=== PATIENT | female | born 1990 | race Caucasian/White ===

== ENCOUNTER 2016-05-20 11:53 | Emergency (ER) | payer BC, OTHER ==
[~2016-05-20] VITALS: Ht 154.9 cm; Wt 82.8 kg
[~2016-05-20 11:53] MED LIST: ACET-1256 PO; AMAN100T2 PO; ASPI-390 PO; BCPILLS PO; CHOL100010 PO; CLTP PO; CTP1CL PO; DESM0.1T8 PO; EFFSR150 PO; FLR1 PO; FRCT/ PO; GABA800T PO; MELA1TAB3 PO; METO-157 PO; MULT-506 PO; MXT150 PO; NEBI10TA2 PO; OXYC-643 PO; PROM25TA16 PO; RIBO100T9 PO; ULT/50 PO
[2016-05-20 11:55] VITALS: TEMP 36.9; Ht 154.9 cm; Wt 82.8 kg
[2016-05-20] MEDS ORDERED: ONDANSETRON INJ 2 MG/ML 2 ML VIAL IV STA (12:18)
[2016-05-20] MEDS ORDERED: MoRPHine SULFATE 10 MG/ML CARP/VIAL IV STA (12:18)
[2016-05-20] MEDS ORDERED: SODIUM CHLORIDE 0.9% 1000ML 1,000 ML IV STA (12:18)
[2016-05-20] MEDS ORDERED: OPTIRAY 320 IV PRN (12:30)
[2016-05-20 12:47] LABS: BASO % 0.1 %; BASO ABS # 0.02 K/uL (0-0.2); COMPLETE YES; EOS % 0.9 %; HEMATOCRIT 40.8 % (37-47); IG% 0.3 %; LYMPH % 23.4 %; LYMPH ABS # 3.16 K/uL (1.2-3.4); MEAN CELL VOLUME 86.6 fL (80-100); MEAN CORPUSCULAR HEMOGLOBIN 29.7 pg (25-34); MEAN CORPUSCULAR HGB CONC 34.3 g/dl (32-36); MEAN PLATELET VOLUME 10.1 fL (7.4-10.4); MONO % 4.2 %; NEUT % 71.1 %; PLATELET COUNT 315 K/uL (130-400); RED BLOOD COUNT 4.71 M/uL (4.2-5.4); WHITE BLOOD COUNT 13.49 K/uL (4.8-10.8)
[2016-05-20 13:16] LABS: BLOOD UREA NITROGEN 15 mg/dl (7-18); BUN/CREATININE RATIO 22.3 (10-20); CARBON DIOXIDE 19 mmol/L (21-32); CHLORIDE 107 mmol/L (98-107); CREATININE 0.65 mg/dl (0.60-1.20); GLUCOSE 120 mg/dl (70-99); SODIUM 137 mmol/L (136-145)
--- NOTE | 2016-05-20 13:45 | DIAGNOSTIC IMAGING REPORT ---
CHEST ONE VIEW PORTABLE CLINICAL HISTORY: Chest Pain COMPARISON STUDY: 10/08/2014 FINDINGS: The cardiac and mediastinal contours are normal. There is no evidence of focal pulmonary consolidation. There is no evidence of failure. No pleural effusions are visualized.[ IMPRESSION: No active disease in the chest. Electronically signed by: Venkatesh Godwin M.D. 05/20/2016 1:43 PM
[2016-05-20] MEDS ORDERED: KETOROLAC TROMETHAMINE 30 MG/ML VIAL IV STA (14:59)
--- NOTE | 2016-05-20 15:00 | DIAGNOSTIC IMAGING REPORT ---
CT ANGIOGRAPHY OF THE CHEST, ABDOMEN, AND PELVIS CLINICAL HISTORY: Chest pain. Left hip pain. COMPARISON STUDY: Right upper quadrant ultrasound March 05, 2009 TECHNIQUE: Before and following the IV administration of 93 mL of Optiray-320, helical axial images of the chest, abdomen and pelvis were obtained. Maximal intensity projections and sagittal and coronal reformats were viewed on an independent 3D workstation. IV contrast was administered without complication. CT DOSE: 1868.14 mGycm FINDINGS: The caliber of the thoracic aorta is normal. There is no evidence for intramural hematoma or dissection. The size of the heart is normal. There is no pericardial effusion. Opacification of the pulmonary arteries is suboptimal for evaluation for pulmonary emboli. There is no thoracic lymphadenopathy. There is no pneumomediastinum. No pneumothorax or pleural effusion is present. There is no consolidation. Note is made of a 7 mm perifissural nodule within the right middle lobe which is shown on image 144 of 646. There are few tiny subpleural nodules as well. The bony thorax is unremarkable. Arterial phase images of the liver, spleen, adrenal glands, kidneys and pancreas are normal. There is a 2 mm right renal calculus. No ureteral calculi are present and there is no hydronephrosis. The caliber and wall thickness of small and large bowel are normal. There is hyperdense material within the appendix which is otherwise normal. No free fluid is present. The ovaries are not significantly enlarged. Skeletal structures are unremarkable. No lymphadenopathy is present. There is no pneumatosis, free air or portal venous gas. The caliber of the abdominal aorta is normal. Major branch vessels are patent. IMPRESSION: 1. No aortic dissection. 2. 2 mm right renal calculus. No ureteral calculi or hydronephrosis. 3. Trace right pleural effusion. No consolidation. 4. 7 mm perifissural nodule within the right middle lobe. In addition, there are a few smaller subpleural nodule. These nodules are likely benign but a follow-up chest CT in 6 months to ensure stability is recommended. Electronically signed by: Mateusz Urbina M.D. 05/20/2016 2:58 PM
[2016-05-20] MEDS ORDERED: MoRPHine SULFATE 4 MG/ML 1 ML CARP\\VIAL IV STA (15:47)
--- NOTE | 2016-05-20 16:03 | DIAGNOSTIC IMAGING REPORT ---
LEFT HIP UNILATERAL 2 VIEWS CLINICAL HISTORY: Left hip pain. COMPARISON: MRI of the left hip November 29, 2013. FINDINGS: Alignment of left hip is anatomic. Joint space is preserved. There is no fracture. There is no evidence for avascular necrosis. There is contrast within the bladder from recent contrast-enhanced CT. IMPRESSION: Unremarkable left hip radiographs. Electronically signed by: Mateusz Urbina M.D. 05/20/2016 4:01 PM
[2016-05-20 16:32] VITALS: BP 135/83; PULSE 116
[2016-05-20 16:49] VITALS: O2SAT 99
--- NOTE | 2016-05-20 18:38 | EMERGENCY ROOM VISIT NOTE ---
History Report prepared by Venu: Suzy Whyte Under the Supervision of: Dr. Vladislav Guzman D.O. First contact with patient: 12:00 Chief Complaint: CHEST PAIN Stated Complaint: CHEST AND HIP PAIN, MIGRAINE Nursing Triage Summary: hx of P.O.T.S. having chest pains and sob for the past 4 days. went to pcp. "they had trouble reading the ekg" History of Present Illness The patient is a 25 year old female who presents to the Emergency Room with complaints of constant chest pain that started 4 days ago. The pain is worse with swallowing and moving around but nothing makes it better. She states that it feels like "when you swallow after taking too big of a bite." She is also experiencing shortness of breath but denies changes in vision, arm pain, and weakness or numbness of her arms or legs. The patient saw her PCP earlier today and they sent her into the ED for further evaluation of her chest pain. She has a history of P.O.T.S. and Jerome-Danlos syndrome, but denies any other heart problems. Additionally, she is experiencing a frontal migraine and left hip pain. The migraine started one week ago and hasn't gone away with medications. The migraine feels like her typical migraines that she has been experiencing for 7 years. The patient has received imaging of her head for the migraines. Headache came on gradually and has progressively worsened. The patient states that she has dislocated her left hip twice but it has been put back in. She has a history of a torn ligament in her hip but she does not follow with anyone for it. She denies any history of COPD. she denies any history of diabetes, hypertension, hyperlipidemia, CAD her previous heart attacks. Just denies any sudden within her family at a young age. Source of History: patient Onset: 4 days ago Position: chest Quality: other ("when you swallow after taking too big of a bite.") Timing: constant Modifying Factors (Worsening): movement, other (swallowing) Modifying Factors (Relieving): other (none) Associated Symptoms: + SOB, + headache (frontal), No numbness, No weakness Note: left hip pain, no changes in vision, no arm pain Review of Systems See HPI for pertinent positives & negatives. A total of 10 systems reviewed and were otherwise negative. Past Medical & Surgical Medical Problems: (1) ASTHMA, UNSPECIFIED (2) CARDIAC DYSRHYTHMIAS NEC (3) Dysautonomia (4) Jerome-Danlos syndrome (5) HEADACHE (6) Migraine (7) MIGRAINE UNSPECIFIED W/O INTRACT MGRN W/O STATUS MIGRAINOSUS (8) POTS (postural orthostatic tachycardia syndrome) Surgical Problems: (1) H/O wisdom tooth extraction (2) History of orthopedic surgery (3) Hx of cholecystectomy Family History FH: HTN (hypertension) FH: diabetes mellitus FH: heart disease Social History Smoking Status: Never Smoker Alcohol Use: none Drug Use: none Marital Status: single Housing Status: lives with roommate Occupation Status: [employer] student Current/Historical Medications Scheduled Acetamin/Butalbital/Caffeine (Fioricet), 1 TAB PO Q4HR PRN Amantadine Hcl (Symmetrel), 200 MG PO DAILY Control Pills ( Control Pills), 1 TAB PO DAILY Calcium/Vitamin D (Caltrate 600 Plus *), 1 TAB PO DAILY Cholecalciferol (Vitamin D), 2,000 INTER.UNIT PO DAILY Clonidine Hcl (Catapres), 0.2 MG PO QPM Desmopressin Acetate (Desmopressin Acetate), 0.1 MG PO DAILY Fludrocortisone Acetate (Florinef *), 0.2 MG PO QAM Gabapentin (Neurontin), 800 MG PO TID Melatonin-Pyridoxine (Melatonin), 3 MG PO QPM Mexiletine Hcl (Mexiletine Hcl), 150 MG PO TID Multivitamin (Multivitamin), 1 TAB PO DAILY Nebivolol Hcl (Bystolic), 10 MG PO DAILY Riboflavin (Vitamin B-2), 200 MG PO BID Venlafaxine Hcl (Effexor Extended Rel), 150 MG PO DAILY Scheduled PRN Acetaminophen (Tylenol), 1,000 MG PO Q6 PRN for Pain or Fever Enitioz-Zdjdyjqtzuefd-Nwrogvow (Excedrin Migraine), 2 TABS PO Q8 PRN for Headache Metoclopramide Hcl (Reglan), 10 MG PO Q6H PRN for Nausea Oxycodone/Acetaminophen 5MG/325MG (Oxycodone/Acetaminophen 5MG/325MG), 1-2 TABLETS PO Q4H PRN for Pain Promethazine HCl (Promethazine HCl), 25 MG PO Q6H PRN for Nausea Tramadol Hcl (Ultram), 50 MG PO Q4H PRN Allergies Coded Allergies: Adhesives (Unverified Adverse Reaction, Intermediate, UNKNWN, 05/20/16) Physical Exam Vital Signs Date Time Temp Pulse Resp B/P Pulse Ox O2 Delivery O2 Flow Rate FiO2 05/20/16 16:49 20 99 05/20/16 16:32 116 22 135/83 100 Room Air 05/20/16 14:58 102 16 128/87 99 Room Air 05/20/16 14:10 101 16 84/50 97 Room Air 05/20/16 11:55 36.9 86 22 127/72 99 Room Air Physical Exam GENERAL: alert, sitting up in bed, well appearing, well nourished, mild distress , non-toxic EYE EXAM: normal conjunctiva OROPHARYNX: no exudate, no erythema, lips, buccal mucosa, and tongue normal and mucous membranes are moist NECK: supple, no nuchal rigidity, no adenopathy, non-tender CHEST: Reproducible anterior chest wall pain. LUNGS: Clear to auscultation. Normal chest wall mechanics HEART: no murmurs, S1 normal and S2 normal ABDOMEN: abdomen soft, non-tender, normo-active bowel sounds, no masses, no rebound or guarding. BACK: Back is symmetrical on inspection and there is no deformity, no midline tenderness, no CVA tenderness. SKIN: no rashes and no bruising UPPER EXTREMITIES: upper extremities are grossly normal. Radial pulses equal bilateral LOWER EXTREMITIES: No pitting edema. Tenderness to palpation of left hip with range of motion intact. NEURO EXAM: Normal sensorium, cranial nerves II-XII intact, normal speech, no weakness of arms, no weakness of legs. No drift. Finger to nose intact. Gross sensation intact. Medical Decision & Procedures ER Provider Diagnostic Interpretation: Xray results per the radiologist and my interpretation. Other results have been interpreted by the radiologist and reviewed by me. CHEST ONE VIEW PORTABLE CLINICAL HISTORY: Chest Pain COMPARISON STUDY: 10/08/2014 FINDINGS: The cardiac and mediastinal contours are normal. There is no evidence of focal pulmonary consolidation. There is no evidence of failure. No pleural effusions are visualized.[ IMPRESSION: No active disease in the chest. Electronically signed by: Venkatesh Godwin M.D. 05/20/2016 1:43 PM LEFT HIP UNILATERAL 2 VIEWS CLINICAL HISTORY: Left hip pain. COMPARISON: MRI of the left hip November 29, 2013. FINDINGS: Alignment of left hip is anatomic. Joint space is preserved. There is no fracture. There is no evidence for avascular necrosis. There is contrast within the bladder from recent contrast-enhanced CT. IMPRESSION: Unremarkable left hip radiographs. Electronically signed by: Mateusz Urbina M.D. 05/20/2016 4:[address] ANGIOGRAPHY OF THE CHEST, ABDOMEN, AND PELVIS CLINICAL HISTORY: Chest pain. Left hip pain. COMPARISON STUDY: Right upper quadrant ultrasound March 05, 2009 TECHNIQUE: Before and following the IV administration of 93 mL of Optiray-320, helical axial images of the chest, abdomen and pelvis were obtained. Maximal intensity projections and sagittal and coronal reformats were viewed on an independent 3D workstation. IV contrast was administered without complication. CT DOSE: 1868.14 mGycm FINDINGS: The caliber of the thoracic aorta is normal. There is no evidence for intramural hematoma or dissection. The size of the heart is normal. There is no pericardial effusion. Opacification of the pulmonary arteries is suboptimal for evaluation for pulmonary emboli. There is no thoracic lymphadenopathy. There is no pneumomediastinum. No pneumothorax or pleural effusion is present. There is no consolidation. Note is made of a 7 mm perifissural nodule within the right middle lobe which is shown on image 144 of 646. There are few tiny subpleural nodules as well. The bony thorax is unremarkable. Arterial phase images of the liver, spleen, adrenal glands, kidneys and pancreas are normal. There is a 2 mm right renal calculus. No ureteral calculi are present and there is no hydronephrosis. The caliber and wall thickness of small and large bowel are normal. There is hyperdense material within the appendix which is otherwise normal. No free fluid is present. The ovaries are not significantly enlarged. Skeletal structures are unremarkable. No lymphadenopathy is present. There is no pneumatosis, free air or portal venous gas. The caliber of the abdominal aorta is normal. Major branch vessels are patent. IMPRESSION: 1. No aortic dissection. 2. 2 mm right renal calculus. No ureteral calculi or hydronephrosis. 3. Trace right pleural effusion. No consolidation. 4. 7 mm perifissural nodule within the right middle lobe. In addition, there are a few smaller subpleural nodule. These nodules are likely benign but a follow-up chest CT in 6 months to ensure stability is recommended. Electronically signed by: Mateusz Urbina M.D. 05/20/2016 2:58 PM Laboratory Results 05/20/16 12:30 Red Blood Count 4.71, Mean Corpuscular Volume 86.6, Mean Corpuscular Hemoglobin 29.7, Mean Corpuscular Hemoglobin Concent 34.3, Mean Platelet Volume 10.1, Neutrophils (%) (Auto) 71.1, Lymphocytes (%) (Auto) 23.4, Monocytes (%) (Auto) 4.2, Eosinophils (%) (Auto) 0.9, Basophils (%) (Auto) 0.1, Neutrophils # (Auto) 9.58, Lymphocytes # (Auto) 3.16, Monocytes # (Auto) 0.57, Eosinophils # (Auto) 0.12, Basophils # (Auto) 0.02 05/20/16 12:30 05/20/16 13:52 Test 05/20/16 12:30 05/20/16 13:52 White Blood Count 13.49 K/uL (4.8-10.8) Red Blood Count 4.71 M/uL (4.2-5.4) Hemoglobin 14.0 g/dL (12.0-16.0) Hematocrit 40.8 % (37-47) Mean Corpuscular Volume 86.6 fL (80-100) Mean Corpuscular Hemoglobin 29.7 pg (25-34) Mean Corpuscular Hemoglobin Concent 34.3 g/dl (32-36) Platelet Count 315 K/uL (130-400) Mean Platelet Volume 10.1 fL (7.4-10.4) Neutrophils (%) (Auto) 71.1 % Lymphocytes (%) (Auto) 23.4 % Monocytes (%) (Auto) 4.2 % Eosinophils (%) (Auto) 0.9 % Basophils (%) (Auto) 0.1 % Neutrophils # (Auto) 9.58 K/uL (1.4-6.5) Lymphocytes # (Auto) 3.16 K/uL (1.2-3.4) Monocytes # (Auto) 0.57 K/uL (0.11-0.59) Eosinophils # (Auto) 0.12 K/uL (0-0.5) Basophils # (Auto) 0.02 K/uL (0-0.2) RDW Standard Deviation 41.8 fL (36.4-46.3) RDW Coefficient of Variation 13.2 % (11.5-14.5) Immature Granulocyte % (Auto) 0.3 % Immature Granulocyte # (Auto) 0.04 K/uL (0.00-0.02) Anion Gap 11.0 mmol/L (3-11) Est Creatinine Clear Calc Drug Dose 127.9 ml/min Estimated GFR () 142.0 Estimated GFR (Non- 122.5 BUN/Creatinine Ratio 22.3 (10-20) Calcium Level 9.0 mg/dl (8.5-10.1) Creatine Kinase MB < 0.5 ng/ml (0.5-3.6) Creatine Kinase MB Ratio (0-3.0) Troponin I < 0.015 ng/ml (0-0.045) Total Creatine Kinase 57 U/L (26-192) Laboratory results per my review. Medications Administered Medications (Trade) Dose Ordered Sig/Param Route Start Time Stop Time Status Last Admin Dose Admin Morphine Sulfate (MoRPHine SULFATE INJ) 6 mg NOW STAT IV 05/20/16 12:18 05/20/16 12:20 DC 05/20/16 13:07 6 MG Ondansetron HCl 4 mg 4 mg NOW STAT IV 05/20/16 12:18 05/20/16 12:20 DC 05/20/16 13:05 4 MG Sodium Chloride (Nss 1000ml) 1,000 ml @ 999 mls/hr Q1H1M STAT IV 05/20/16 12:18 05/20/16 13:18 DC 05/20/16 13:09 999 MLS/HR Ketorolac Tromethamine (Toradol Inj) 30 mg NOW STAT IV 05/20/16 14:59 05/20/16 15:04 DC 05/20/16 15:18 30 MG Morphine Sulfate (MoRPHine SULFATE INJ) 4 mg NOW STAT IV 05/20/16 15:47 05/20/16 15:48 DC 05/20/16 16:31 4 MG ECG Indication: chest pain Rate (beats per minute): 109 Rhythm: sinus tachycardia Findings: no ectopy, other (normal axis) Comparison ECG Date: 07/28/2015 Change: no significant change ED Course ED COURSE: Vital signs were reviewed and showed normal. The patients medical record was reviewed The above diagnostic studies were performed and reviewed. ED treatments and interventions as stated above. 1207: The patient was evaluated in room B6. A complete history and physical examination was performed. 1218: Ordered Sodium Chloride 1000 ml @ 999 mls/hr IV, Zofran 4 mg IV, Morphine Sulfate 6 mg IV 1457: I reassessed the patient. She is still having pain. 1459: Ordered Toradol 30 mg IV 1547: Ordered Morphine Sulfate 4 mg IV 1630: Upon reevaluation, the patient is doing well. I discussed my findings with the patient and she understands and agrees with the treatment plan. Based on the patients age, coexisting illnesses, exam and lab findings the decision to treat as an outpatient was made. The patient remained stable while under my care. The patient appeared well at the time of discharge. Medical Decision Differential diagnoses includes but is not limited to acute coronary syndrome, myocardial infarction, pericarditis, pulmonary embolus, aortic dissection, pneumonia, pneumothorax, musculoskeletal, shingles, esophageal, headache, tension headache, cluster headache, migraine, subarachnoid hemorrhage, meningitis, mass, central venous thrombus, concussion, trauma and epidural/ subdural hemorrhage. Patient is a 25 year old female who presents the ER for headache which is unchanged from previous migraines. She notes that she has had these for the past 7 years and is unchanged. It came on gradually improved and worsen. Afebrile. No signs of meningitis or encephalitis. She also complains of midsternal chest pain which has been present for the past 4 days. This is clearly reproducible on exam. She does have a history of Jerome-Danlos syndrome and was sent in for the chest pain which does go through into her chest. EKG was unchanged. CT was performed and showed no dissection. Lastly she complained of left hip pain which is been present since dislocated several days ago. X-ray showed no focal dislocation or fracture. Patient was given 2 doses of morphine and had improvement of her pain. She is also given Toradol. I updated the patient at bedside and she is fairly unhappy as she is not given additional narcotics. I did not give her any additional narcotics as I feel this is likely muscle skeletal and anti-inflammatories will work best. She was also found to have a 7 mm lung nodule that needs to be followed up in 6 months. Patient left rather abruptly and I did not mentioned this to the patient initially, consequently i let the charge nurse know who will call her back to inform her to have a repeat CAT scan within next 6 months. Discussed with Pt concerning signs and symptoms to watch out for. Pt was instructed to follow up with their PCP and discussed with the patient their option to return to the ED at anytime for persistent or worsening symptoms. The appropriate anticipatory guidance and out-patient management, including indications for return to the emergency department, were explained at length to the patient and understood. Impression Primary Impression: Precordial chest pain Additional Impressions: Left hip pain, Headache, Pulmonary nodules Scribe Attestation The scribe's documentation has been prepared under my direction and personally reviewed by me in its entirety. I confirm that the note above accurately reflects all work, treatment, procedures, and medical decision making performed by me. Departure Information Dispostion Home / Self-Care Referrals No Doctor, Assigned (PCP) Forms HOME CARE DOCUMENTATION FORM, IMPORTANT VISIT INFORMATION Patient Instructions A Signature Page, My [facility] Additional Instructions Please follow up with your primary care doctor with in the next 24 hours. Any worsening of your symptoms, please return to the ED immediately. This includes passing out, worsening chest pain, shortness of breath, weakness in your arms or legs, or any other concerning signs or symptoms from your standpoint. Please take Motrin or Tylenol as needed for pain. Your chest pain does appear to be muscle skeletal in origin, and will benefit from Motrin or Tylenol but will take some time to improve. You were given medications during this visit that will inhibit your ability to drive, operate machinery and work. Please do NOT drive, operate machinery or work for the next 12hrs. Please continue to follow with neurology for headaches.
== END 2016-05-20 16:51 | disposition home or self-care (01) ==
LOC: C.EDB 11:54
DX: R07.2 Precordial pain (principal); R91.1 Solitary pulmonary nodule; M25.552 Pain in left hip; R51 Headache; R00.0 Tachycardia, unspecified; J45.909 Unspecified asthma, uncomplicated; G90.1 Familial dysautonomia [Riley-Day]; Z90.49 Acquired absence of other specified parts of digestive tract; Z98.890 Other specified postprocedural states; Z79.899 Other long term (current) drug therapy; Z91.09 Other allergy status, other than to drugs and biological substances; Z82.49 Family history of ischemic heart disease and other diseases of the circulatory system; Z83.3 Family history of diabetes mellitus

== ENCOUNTER 2016-06-23 13:57 | Inpatient (IN) | payer OTHER ==
[~2016-06-23] VITALS: Ht 154.9 cm; Wt 86.6 kg
--- NOTE | 2016-06-23 14:34 | EMERGENCY ROOM VISIT NOTE ---
History Report prepared by Venu: Agustina Shetty Under the Supervision of: Dr. Diomedes Mcdaniel, Pat[facility]. First contact with patient: 14:14 Chief Complaint: HEADACHE Stated Complaint: MIGRAINE History of Present Illness The patient is a 25 year old female who presents to the Emergency Room with complaints of a persistent headache that began one month ago. She currently rates her discomfort as an 8/10 in severity. The patient states that she has a history of migraines and states that what she has been experiencing the past month is similar to her previous migraines, just states that her symptoms have not been alleviated. She states that she follows with Dr. Ricardo, Neurology and states that she was referred to the emergency department to be admitted into the hospital for DHE infusions every 8 hours. The patient states that she has been on DHE injections for about one year and states that the shots are not working. She additionally associates nausea, but denies any fever. The patient notes a history of EDS. She denies any tobacco or alcohol use. Source of History: patient Onset: one month ago Position: head Symptom Intensity: 8/10 Timing: other (persistent) Associated Symptoms: + nausea, No fevers Review of Systems See HPI for pertinent positives & negatives. A total of 10 systems reviewed and were otherwise negative. Past Medical & Surgical Medical Problems: (1) ASTHMA, UNSPECIFIED (2) CARDIAC DYSRHYTHMIAS NEC (3) Dysautonomia (4) Jerome-Danlos syndrome (5) HEADACHE (6) Migraine (7) MIGRAINE UNSPECIFIED W/O INTRACT MGRN W/O STATUS MIGRAINOSUS (8) POTS (postural orthostatic tachycardia syndrome) Surgical Problems: (1) H/O wisdom tooth extraction (2) History of orthopedic surgery (3) Hx of cholecystectomy Family History FH: HTN (hypertension) FH: diabetes mellitus FH: heart disease Social History Smoking Status: Never Smoker Alcohol Use: none Drug Use: none Marital Status: single Housing Status: lives with roommate Occupation Status: [employer] student Current/Historical Medications Scheduled Acetamin/Butalbital/Caffeine (Fioricet), 1 TAB PO Q4HR PRN Amantadine Hcl (Symmetrel), 200 MG PO DAILY Control Pills ( Control Pills), 1 TAB PO DAILY Calcium/Vitamin D (Caltrate 600 Plus *), 1 TAB PO DAILY Cholecalciferol (Vitamin D), 2,000 INTER.UNIT PO DAILY Clonidine Hcl (Catapres), 0.2 MG PO QPM Desmopressin Acetate (Desmopressin Acetate), 0.1 MG PO DAILY Fludrocortisone Acetate (Florinef *), 0.2 MG PO QAM Gabapentin (Neurontin), 800 MG PO TID Melatonin-Pyridoxine (Melatonin), 3 MG PO QPM Mexiletine Hcl (Mexiletine Hcl), 150 MG PO TID Multivitamin (Multivitamin), 1 TAB PO DAILY Nebivolol Hcl (Bystolic), 10 MG PO DAILY Riboflavin (Vitamin B-2), 200 MG PO BID Venlafaxine Hcl (Effexor Extended Rel), 150 MG PO DAILY Scheduled PRN Acetaminophen (Tylenol), 1,000 MG PO Q6 PRN for Pain or Fever Tciowlm-Cvlvfrwwhfjaa-Jxazdasa (Excedrin Migraine), 2 TABS PO Q8 PRN for Headache Metoclopramide Hcl (Reglan), 10 MG PO Q6H PRN for Nausea Oxycodone/Acetaminophen 5MG/325MG (Oxycodone/Acetaminophen 5MG/325MG), 1-2 TABLETS PO Q4H PRN for Pain Promethazine HCl (Promethazine HCl), 25 MG PO Q6H PRN for Nausea Tramadol Hcl (Ultram), 50 MG PO Q4H PRN Allergies Coded Allergies: Adhesives (Unverified Adverse Reaction, Intermediate, UNKNWN, 05/20/16) Physical Exam Vital Signs Date Time Temp Pulse Resp B/P Pulse Ox O2 Delivery O2 Flow Rate FiO2 06/23/16 17:01 114 16 122/84 97 Room Air 06/23/16 16:05 118 20 118/78 99 Room Air 06/23/16 14:55 115 06/23/16 14:52 115 18 126/91 98 Room Air 06/23/16 14:00 36.9 126 18 112/77 99 Room Air Physical Exam GENERAL: Patient is awake, alert, very anxious and uncomfortable appearing. EYES: The conjunctivae are clear. The pupils are round and reactive. EARS, NOSE, MOUTH AND THROAT: The nose is without any evidence of any deformity. Mucous membranes are moist tongue is midline NECK: The neck is nontender and supple. RESPIRATORY: Normal respiratory effort is noted there is no evidence of wheezing rhonchi or rales CARDIOVASCULAR: Regular rate and rhythm noted there no murmurs rubs or gallops normal S1 normal S2 GASTROINTESTINAL: The abdomen is soft. Bowel sounds are present in all quadrants. Abdomen is nontender MUSCULOSKELETAL/EXTREMITIES: There is no evidence of gross deformity full range of motion is noted in the hips and shoulders SKIN: There is no obvious evidence of any rash. There are no petechiae, pallor or cyanosis noted. NEUROLOGIC: Patient is awake alert and oriented x3 strength is symmetric patellar reflexes are 2+ bilaterally Medical Decision & Procedures Laboratory Results 06/23/16 16:35 Red Blood Count 4.95, Mean Corpuscular Volume 89.1, Mean Corpuscular Hemoglobin 29.7, Mean Corpuscular Hemoglobin Concent 33.3, Mean Platelet Volume 10.2, Neutrophils (%) (Auto) 52.8, Lymphocytes (%) (Auto) 35.8, Monocytes (%) (Auto) 8.9, Eosinophils (%) (Auto) 1.7, Basophils (%) (Auto) 0.2, Neutrophils # (Auto) 5.19, Lymphocytes # (Auto) 3.52, Monocytes # (Auto) 0.87, Eosinophils # (Auto) 0.17, Basophils # (Auto) 0.02 06/23/16 15:58 Test 06/23/16 15:56 06/23/16 15:58 06/23/16 16:35 Urine Color YELLOW Urine Appearance CLEAR (CLEAR) Urine pH 8.0 (4.5-7.5) Urine Specific [place] 1.022 (1.000-1.030) Urine Protein NEG (NEG) Urine Glucose (UA) NEG (NEG) Urine Ketones NEG (NEG) Urine Occult Blood NEG (NEG) Urine Nitrite NEG (NEG) Urine Bilirubin NEG (NEG) Urine Urobilinogen NEG (NEG) Urine Leukocyte Esterase NEG (NEG) Anion Gap 13.0 mmol/L (3-11) Est Creatinine Clear Calc Drug Dose 136.1 ml/min Estimated GFR () 143.5 Estimated GFR (Non- 123.8 BUN/Creatinine Ratio 18.6 (10-20) Calcium Level 9.0 mg/dl (8.5-10.1) Magnesium Level 2.3 mg/dl (1.8-2.4) Total Bilirubin 0.2 mg/dl (0.2-1) Direct Bilirubin mg/dl (0-0.2) Aspartate Amino Transf (AST/SGOT) 51 U/L (15-37) Alanine Aminotransferase (ALT/SGPT) 90 U/L (12-78) Alkaline Phosphatase 101 U/L (45-117) Total Protein 7.3 gm/dl (6.4-8.2) Albumin 3.7 gm/dl (3.4-5.0) Lipase 144 U/L (73-393) Human Chorionic Gonadotropin, Qual NEG (NEG) Chemistry Specimen Hemolysis White Blood Count 9.83 K/uL (4.8-10.8) Red Blood Count 4.95 M/uL (4.2-5.4) Hemoglobin 14.7 g/dL (12.0-16.0) Hematocrit 44.1 % (37-47) Mean Corpuscular Volume 89.1 fL (80-100) Mean Corpuscular Hemoglobin 29.7 pg (25-34) Mean Corpuscular Hemoglobin Concent 33.3 g/dl (32-36) Platelet Count 228 K/uL (130-400) Mean Platelet Volume 10.2 fL (7.4-10.4) Neutrophils (%) (Auto) 52.8 % Lymphocytes (%) (Auto) 35.8 % Monocytes (%) (Auto) 8.9 % Eosinophils (%) (Auto) 1.7 % Basophils (%) (Auto) 0.2 % Neutrophils # (Auto) 5.19 K/uL (1.4-6.5) Lymphocytes # (Auto) 3.52 K/uL (1.2-3.4) Monocytes # (Auto) 0.87 K/uL (0.11-0.59) Eosinophils # (Auto) 0.17 K/uL (0-0.5) Basophils # (Auto) 0.02 K/uL (0-0.2) RDW Standard Deviation 46.3 fL (36.4-46.3) RDW Coefficient of Variation 14.2 % (11.5-14.5) Immature Granulocyte % (Auto) 0.6 % Immature Granulocyte # (Auto) 0.06 K/uL (0.00-0.02) Laboratory results per my review. Medications Administered Medications (Trade) Dose Ordered Sig/Param Route Start Time Stop Time Status Last Admin Dose Admin Ketorolac Tromethamine 30 mg 30 mg NOW STAT IV 06/23/16 14:37 06/23/16 14:40 DC 06/23/16 15:52 30 MG Sodium Chloride (Nss 1000ml) 1,000 ml @ 999 mls/hr Q1H1M STAT IV 06/23/16 14:37 06/23/16 15:37 DC 06/23/16 15:52 999 MLS/HR Ondansetron HCl (Zofran Inj) 4 mg NOW STAT IV 06/23/16 14:37 06/23/16 14:40 DC 06/23/16 15:52 4 MG Dihydroergotamine Mesylate (D.H.E. 45 Inj) 1 mg NOW ONCE IV 06/23/16 14:45 06/23/16 14:46 DC 06/23/16 16:03 1 MG Diphenhydramine HCl (Benadryl Inj) 25 mg NOW STAT IV 06/23/16 15:57 06/23/16 15:58 DC 06/23/16 16:03 25 MG ED Course 1421: The patient was evaluated in room A12A. A complete history and physical examination were performed. 1434: I discussed the patients case with Dr. Ricardo, Neurology. Try a dose of DHE and other migraine medications while in the emergency department. He states that if she responds well she can follow up as an outpatient, but states that if she does not, she should be evaluated for further treatment. 1437: Ordered Zofran Inj 4 mg IV, Sodium Chloride 1000 ml @ 999 mls/hr IV, Toradol Inj 30 mg IV. 1445: Ordered DHE 45 inj 1 mg IV. 1557: Ordered Benadryl Inj 25 mg IV. 1630: I reevaluated the patient and she states that she is not feeling much better. 1711: I reevaluated the patient and she is still not feeling any better. I discussed the exam findings with her and I discussed the treatment plan. She verbalized complete understanding and agreement. She is going to be evaluated for further treatment. 1722: I discussed the patients case with Dr. In[place], [facility] He is going to evaluate the patient for further treatment. Medical Decision Differential diagnosis: Etiologies such as migraine headache, meningitis, sinusitis, CO exposure, ICH, SAH, infection, tumor, headache, sinus thrombosis, arterial dissection, as well as others were entertained. Nursing notes reviewed. The patient is a 25-year-old female who presented to the emergency department for an evaluation of migraine headache. The patient describes a headache which she's been expressing for approximately one month. She states that she's had similar headaches in the past however the duration of this headache appears to be atypical for her. She presented to the emergency department after calling her primary neurologist. She states that she normally responds well to DHE protocol. I discussed her case with the patient's primary neurologist. She was treated with IV fluids IV DHE IV pain medicine and IV antiemetics in the emergency department. On subsequent reevaluation she was not significantly improved. This reason I discussed her case with the on-call [facility] hospitalist group. The patient had no focal neurologic deficits, meningismus, or fever. Consults Time Called: 1425 Consulting Physician: Dr. Ricardo, Neurology Returned Call: [phone] I discussed the patients case with Dr. Ricardo, Neurology. Try a dose of DHE and other migraine medications while in the emergency department. He states that if she responds well she can follow up as an outpatient, but states that if she does not, she should be evaluated for further treatment. Additional Consults: Time Called: 1718 Consulted Physician: FLORIDALMA Lockhart Returned Call: [phone] Additional Comments: I discussed the patients case with FLORIDALMA Lockhart. He is going to evaluate the patient for further treatment. Impression Primary Impression: Headache, migraine, intractable Scribe Attestation The scribe's documentation has been prepared under my direction and personally reviewed by me in its entirety. I confirm that the note above accurately reflects all work, treatment, procedures, and medical decision making performed by me. Departure Information Dispostion Being Evaluated By Hospitalist Referrals No Doctor, Assigned (PCP)
[2016-06-23] MEDS ORDERED: KETOROLAC TROMETHAMINE 30 MG/ML VIAL IV STA (14:37)
[2016-06-23] MEDS ORDERED: SODIUM CHLORIDE 0.9% 1000ML 1,000 ML IV STA (14:37)
[2016-06-23] MEDS ORDERED: ONDANSETRON INJ 2 MG/ML 2 ML VIAL IV STA (14:37)
[2016-06-23] MEDS ORDERED: DIHYDROERGOTAMINE MESYLATE 1 MG/ML VIAL IV ONE (14:45)
[2016-06-23] MEDS ORDERED: DiphenhydrAMINE HCL 50 MG/ML VIAL IV STA (15:57)
[2016-06-23 16:25] LABS: URINE APPEARANCE CLEAR (CLEAR); URINE BILIRUBIN NEG (NEG); URINE COLOR YELLOW; URINE NITRITE NEG (NEG); URINE SPECIFIC GRAVITY 1.022 (1.000-1.030); UROBILINOGEN NEG (NEG)
[2016-06-23 16:29] LABS: MANUAL MICROSCOPIC REQUIRED? NO; REVIEW REQ? NO
[2016-06-23 16:32] LABS: PREG INTERNAL NEGATIVE QC NEG CLEAR BACKGROUND; PREG INTERNAL POSITIVE QC POS CONTROL LINE
[2016-06-23 17:12] LABS: ALKALINE PHOSPHATASE 101 U/L (45-117); ALT/SGPT 90 U/L (12-78); AST/SGOT 51 U/L (15-37); BLOOD UREA NITROGEN 12 mg/dl (7-18); BUN/CREATININE RATIO 18.6 (10-20); CARBON DIOXIDE 22 mmol/L (21-32); CHLORIDE 104 mmol/L (98-107); CREATININE 0.63 mg/dl (0.60-1.20); GLUCOSE 102 mg/dl (70-99); MAGNESIUM 2.3 mg/dl (1.8-2.4); POTASSIUM 4.9 mmol/L (3.5-5.1); SODIUM 139 mmol/L (136-145)
[2016-06-23 17:18] LABS: BASO % 0.2 %; BASO ABS # 0.02 K/uL (0-0.2); COMPLETE YES; EOS % 1.7 %; HEMATOCRIT 44.1 % (37-47); IG% 0.6 %; LYMPH % 35.8 %; LYMPH ABS # 3.52 K/uL (1.2-3.4); MEAN CELL VOLUME 89.1 fL (80-100); MEAN CORPUSCULAR HEMOGLOBIN 29.7 pg (25-34); MEAN CORPUSCULAR HGB CONC 33.3 g/dl (32-36); MEAN PLATELET VOLUME 10.2 fL (7.4-10.4); MONO % 8.9 %; NEUT % 52.8 %; PLATELET COUNT 228 K/uL (130-400); RED BLOOD COUNT 4.95 M/uL (4.2-5.4); WHITE BLOOD COUNT 9.83 K/uL (4.8-10.8)
[2016-06-23] MEDS ORDERED: ONDANSETRON INJ 8 MG in DEXTROSE 5% 50ML 50 ML IV PRN (18:15)
[2016-06-23] MEDS ORDERED: DIHYDROERGOTAMINE MESYLATE 1 MG/ML VIAL IM SCH (18:15)
[2016-06-23] MEDS ORDERED: PROMETHAZINE HCL INJ 12.5 MG in SODIUM CHLORIDE 0.9% 50ML 50 ML IV PRN (18:15)
[2016-06-23] MEDS ORDERED: TRAMADOL HCL 50 MG TAB PO PRN (18:15)
[2016-06-23] MEDS ORDERED: OXYCODONE/ACETAMINOPHEN 5-325 TAB PO PRN (18:15)
[2016-06-23] MEDS ORDERED: ACETAMINOPHEN 325 MG TAB PO PRN (18:15)
[2016-06-23] MEDS ORDERED: SODIUM CHLORIDE 0.9% 1000ML 1,000 ML IV SCH (18:28)
[2016-06-23] MEDS ORDERED: ONDANSETRON INJ 2 MG/ML 2 ML VIAL IV ONE (18:45)
[2016-06-23] MEDS ORDERED: METOCLOPRAMIDE HCL INJ 5 MG/ML 2 ML VIAL IV SCH (18:45)
--- NOTE | 2016-06-23 18:55 | History and Physical ---
History & Physical Date & Time of Service: Jun 23, 2016 at 18:29 Chief Complaint: Migraine Primary Care Physician: No Doctor, Assigned History of Present Illness Source: patient This is a 25 yo F with PMHx of Ethers-Danlos Syndrome, chronic migraine, asthma , cardiac dyrhythmias and dysautonomia who presents with a migraine which initially started 1 month ago. She was recently admitted at [facility] x 8 days approximately 2 weeks ago for the same complaints. There, she was unable to receive DHE for migraine treatment, therefore had numerous medications and regimens which she reports did not work for her. She is insistent upon only being admitted if this medication is made available for her. She has already recieved DHE 1 mg IV and Zofran 4 mg IV while in the ED around 1600 and reports no significant relief yet. Pt is also requesting a PICC line if she's going to have IV administration. Her sx include nausea, photosensitivity, sensitivity to sound, denies aura. She is unable to work or go to school. Lives with her fiance. She reports recent diarrhea x 2 days, had few episodes today and took immodium, she has not had episodes this evening. She eats and drinks as she is able to while being nauseated. Past Medical/Surgical History Medical Problems: (1) ASTHMA, UNSPECIFIED Status: Chronic (2) CARDIAC DYSRHYTHMIAS NEC Status: Chronic (3) Dysautonomia Status: Chronic (4) Jerome-Danlos syndrome Status: Chronic (5) HEADACHE Status: Chronic (6) Migraine Status: Resolved (7) MIGRAINE UNSPECIFIED W/O INTRACT MGRN W/O STATUS MIGRAINOSUS Status: Chronic (8) POTS (postural orthostatic tachycardia syndrome) Status: Chronic Surgical Problems: (1) H/O wisdom tooth extraction Status: Resolved (2) History of orthopedic surgery Status: Resolved (3) Hx of cholecystectomy Status: Resolved Family History FH: HTN (hypertension) FH: diabetes mellitus FH: heart disease Social History Smoking Status: Never Smoker Smokeless Tobacco Use: No Alcohol Use: none Drug Use: none Marital Status: single Housing status: lives with significant other (fiance) Occupational Status: [employer] student Allergies Coded Allergies: Adhesives (Unverified Adverse Reaction, Intermediate, UNKNWN, 05/20/16) Home Medications Scheduled Acetamin/Butalbital/Caffeine (Fioricet), 1 TAB PO Q4HR PRN Amantadine Hcl (Symmetrel), 200 MG PO DAILY Control Pills ( Control Pills), 1 TAB PO DAILY Calcium/Vitamin D (Caltrate 600 Plus *), 1 TAB PO DAILY Cholecalciferol (Vitamin D), 2,000 INTER.UNIT PO DAILY Clonidine Hcl (Catapres), 0.2 MG PO QPM Desmopressin Acetate (Desmopressin Acetate), 0.1 MG PO DAILY Fludrocortisone Acetate (Florinef *), 0.2 MG PO QAM Gabapentin (Neurontin), 800 MG PO TID Melatonin-Pyridoxine (Melatonin), 3 MG PO QPM Mexiletine Hcl (Mexiletine Hcl), 150 MG PO TID Multivitamin (Multivitamin), 1 TAB PO DAILY Nebivolol Hcl (Bystolic), 10 MG PO DAILY Riboflavin (Vitamin B-2), 200 MG PO BID Venlafaxine Hcl (Effexor Extended Rel), 150 MG PO DAILY Scheduled PRN Acetaminophen (Tylenol), 1,000 MG PO Q6 PRN for Pain or Fever Msvtycs-Gemtvcnzllwvt-Uvxfwemr (Excedrin Migraine), 2 TABS PO Q8 PRN for Headache Metoclopramide Hcl (Reglan), 10 MG PO Q6H PRN for Nausea Oxycodone/Acetaminophen 5MG/325MG (Oxycodone/Acetaminophen 5MG/325MG), 1-2 TABLETS PO Q4H PRN for Pain Promethazine HCl (Promethazine HCl), 25 MG PO Q6H PRN for Nausea Tramadol Hcl (Ultram), 50 MG PO Q4H PRN Review of Systems Constitutional: + sweats, No chills, No fever Eyes: No diplopia ENT: No nasal symptoms, No sore throat Respiratory: No cough, No dyspnea on exertion, No shortness of breath, No sputum Cardiovascular: No chest pain, No palpitations Abdomen: No constipation, No diarrhea, No nausea, No pain Musculoskeletal: No calf pain, No joint pain, No swelling Genitourinary - Female: No dysuria Neurologic: No numbness/tingling, No weakness Psychiatric: + anxiety, + depression symptoms Integumentary: No itch, No rash Physical Exam Vital Signs Date Time Temp Pulse Resp B/P Pulse Ox O2 Delivery O2 Flow Rate FiO2 2/6/17 18:27 116 16 119/88 94 Room Air 06/23/16 17:01 114 16 122/84 97 Room Air 06/23/16 16:05 118 20 118/78 99 Room Air 06/23/16 14:55 115 06/23/16 14:52 115 18 126/91 98 Room Air 06/23/16 14:00 36.9 126 18 112/77 99 Room Air General Appearance: WD/WN, + mild distress, + obese Head: normocephalic, atraumatic Eyes: PERRL, EOMI ENT: hearing grossly normal, pharynx normal Neck: supple, no JVD Respiratory/Chest: lungs clear, normal breath sounds, no respiratory distress, no accessory muscle use Cardiovascular: regular rate, rhythm, no JVD, normal peripheral pulses Abdomen/GI: normal bowel sounds, non tender, soft, no organomegaly Extremities/Musculoskelatal: no calf tenderness, no pedal edema Neurologic/Psych: alert, oriented x 3, + pertinent finding (tearful at times, demanding throughout conversation. ) Skin: normal color, warm/dry, + diaphoresis Diagnostics Laboratory Results Results Past 24 Hours Test 06/23/16 15:56 06/23/16 15:58 06/23/16 16:35 Range/Units Urine Color YELLOW Urine Appearance CLEAR CLEAR Urine pH 8.0 4.5-7.5 Urine Specific [place] 1.022 1.000-1.030 Urine Protein NEG NEG Urine Glucose (UA) NEG NEG Urine Ketones NEG NEG Urine Occult Blood NEG NEG Urine Nitrite NEG NEG Urine Bilirubin NEG NEG Urine Urobilinogen NEG NEG Urine Leukocyte Esterase NEG NEG Sodium Level 139 136-145 mmol/L Potassium Level 4.9 3.5-5.1 mmol/L Chloride Level 104 98-107 mmol/L Carbon Dioxide Level 22 21-32 mmol/L Anion Gap 13.0 3-11 mmol/L Blood Urea Nitrogen 12 7-18 mg/dl Creatinine 0.63 0.60-1.20 mg/dl Est Creatinine Clear Calc Drug Dose 136.1 ml/min Estimated GFR () 143.5 Estimated GFR (Non- 123.8 BUN/Creatinine Ratio 18.6 10-20 Random Glucose 102 70-99 mg/dl Calcium Level 9.0 8.5-10.1 mg/dl Magnesium Level 2.3 1.8-2.4 mg/dl Total Bilirubin 0.2 0.2-1 mg/dl Direct Bilirubin 0-0.2 mg/dl Aspartate Amino Transf (AST/SGOT) 51 15-37 U/L Alanine Aminotransferase (ALT/SGPT) 90 12-78 U/L Alkaline Phosphatase 101 45-117 U/L Total Protein 7.3 6.4-8.2 gm/dl Albumin 3.7 3.4-5.0 gm/dl Lipase 144 73-393 U/L Human Chorionic Gonadotropin, Qual NEG NEG Chemistry Specimen Hemolysis White Blood Count 9.83 4.8-10.8 K/uL Red Blood Count 4.95 4.2-5.4 M/uL Hemoglobin 14.7 12.0-16.0 g/dL Hematocrit 44.1 37-47 % Mean Corpuscular Volume 89.1 80-100 fL Mean Corpuscular Hemoglobin 29.7 25-34 pg Mean Corpuscular Hemoglobin Concent 33.3 32-36 g/dl Platelet Count 228 130-400 K/uL Mean Platelet Volume 10.2 7.4-10.4 fL Neutrophils (%) (Auto) 52.8 % Lymphocytes (%) (Auto) 35.8 % Monocytes (%) (Auto) 8.9 % Eosinophils (%) (Auto) 1.7 % Basophils (%) (Auto) 0.2 % Neutrophils # (Auto) 5.19 1.4-6.5 K/uL Lymphocytes # (Auto) 3.52 1.2-3.4 K/uL Monocytes # (Auto) 0.87 0.11-0.59 K/uL Eosinophils # (Auto) 0.17 0-0.5 K/uL Basophils # (Auto) 0.02 0-0.2 K/uL RDW Standard Deviation 46.3 36.4-46.3 fL RDW Coefficient of Variation 14.2 11.5-14.5 % Immature Granulocyte % (Auto) 0.6 % Immature Granulocyte # (Auto) 0.06 0.00-0.02 K/uL Diagnostic Radiology No imaging to review. Impression Assessment and Plan This is a 25 yo F with PMHx of Ethers-Danlos Syndrome, chronic migraine, asthma , cardiac dysrhythmias and dysautonomia who presents with a migraine which initially started 1 month ago. Migraine, nausea, intractable - Will admit to med/surg - Received 1 dose DHE 1 mg IV in the ED, will continue with DHE 1 mg IM injections Q1H for next two doses. Pt notes her IV site currently burning, and is requesting placement of PICC line for possible Max daily dose of IV injections is 2 mg within 24 hours, and 3mg IM within 24 hours. Discussed with pharmacy- pt is agreeable to the plan. 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 Y/N: Yes Risk Level: Very Low Reviewed: Pt Seen/Exam by Me, RN Notes, HO Notes, Prior Records, Labs History I agree with PA H&P except as below This is a 25 yo Female with PMHx of Jerome-Danlos Syndrome, chronic migraine, asthma, cardiac dysrhythmias and dysautonomia who presents with a migraine which initially started 1 month ago. Constitutional: denies: chills EENTM: denies: tearing Respiratory: negative: cough Cardiovascular: denies chest pain Genitourinary: negative discharge Musculoskeletal: negative: back pain Neurological/Psych: negative: anxiety Hematologic/Lymphatic: negative: anemia General Appearance: WD/WN, no apparent distress Eye Exam: bilateral eye normal inspection Ears, Nose, Throat: hearing grossly normal, pharynx normal Neck: non-tender, supple Respiratory: chest non-tender, normal breath sounds Cardiovascular: regular rate, rhythm, no gallop Gastrointestinal: non tender, soft Extremities: normal range of motion Neurologic/Psychiatric: alert Skin Characteristics: normal color Assessment/Plan This is a 25 yo F with PMHx of Jerome-Danlos Syndrome, chronic migraine, asthma , cardiac dysrhythmias and dysautonomia who presents with a migraine which initially started 1 month ago. Migraine, nausea, intractable med/surg Received 1 dose DHE 1 mg IV in the ED, will continue with DHE 1 mg IM injections Q1H for next two doses. Pt notes her IV site currently burning, and is requesting placement of PICC line for possible Max daily dose of IV injections is 2 mg within 24 hours, and 3mg IM within 24 hours. Discussed with pharmacy Checking urine b-Hcg prior to next dose of DHE, however patient is on control pills cont NSS 100 mL/hr continuous Continue zofran, phenergan, reglan prn Pt takes tramadol and oxycodone as outpatient Diarrhea Check stool cultures, c diff, O&P, especially since being admitted in [facility] for 8 days recently Jerome-Danlos Syndrome, noted Cardiac dysrhythmias and dysautonomia Cont nebivolol hcl 10 mg daily and clonidine 0.2 mg daily Depression/Anxiety Continue effexor 150 mg daily DVT proph: SCDs, OOB CODE STATUS: FULL CODE Disposition: From home case discussed with RYANNE Pierre time spent 50 min
[2016-06-23] MEDS: DIHYDROERGOTAMINE MESYLATE 1 MG/ML VIAL IM SCH ×2 (19:07→20:19)
[2016-06-23] MEDS ORDERED: GABAPENTIN 800 MG TAB PO SCH (20:39)
[2016-06-23 21:00] VITALS: BP 127/87; PULSE 113; TEMP 36.6; O2SAT 97; Ht 154.9 cm; Wt 86.6 kg
[2016-06-23] MEDS ORDERED: CLONIDINE HCL 0.1 MG TAB PO SCH (21:00)
[2016-06-23] MEDS ORDERED: NON-FORMULARY MEDICATION (Melatonin-Pyridoxine (Melatonin) 3 MG) PO SCH (21:00)
[2016-06-23 21:15] VITALS: BP 127/87; PULSE 113; TEMP 36.6; O2SAT 97
[2016-06-23] MEDS ORDERED: ZOLPIDEM TARTRATE 5 MG TAB PO PRN (21:45)
[2016-06-24] MEDS ORDERED: VENLAFAXINE HCL XR 150 MG CAPXR PO SCH (08:00)
[2016-06-24] MEDS ORDERED: DESMOPRESSIN ACETATE 0.1 MG TAB PO SCH (08:00)
[2016-06-24] MEDS ORDERED: NEBIVOLOL HCL 5 MG TAB PO SCH (08:00)
[2016-06-24] MEDS ORDERED: AMANTADINE HCL 100 MG CAP PO SCH (08:00)
[2016-06-24] MEDS ORDERED: FLUDROCORTISONE ACETATE 0.1 MG TAB PO SCH (08:00)
--- NOTE | 2016-06-25 15:06 | Discharge Summary ---
Discharge Summary Admission Date: Jun 23, 2016 at 18:28 Discharge Date: Jun 23, 2016 Discharge Disposition: Home Principal Diagnosis: migraine Problems/Secondary Diagnoses: (1) Jerome-Danlos syndrome Status: Chronic (2) POTS (postural orthostatic tachycardia syndrome) Status: Chronic Discharge Exam c/o headache Review of Systems: Constitutional: No chills Respiratory: No sputum Cardiovascular: No orthopnea Abdomen: No nausea Genitourinary - Female: No dysuria Neurologic: No paralysis Endocrine: No fatigue Physical Exam: General Appearance: no apparent distress Eyes: normal inspection ENT: hearing grossly normal Neck: supple Respiratory/Chest: lungs clear Cardiovascular: no JVD Abdomen / GI: soft Extremities: normal inspection, normal range of motion Neurologic/Psychiatric: normal mood/affect Skin: no rash Hospital Course This is a 25 yo F with PMHx of Jerome-Danlos Syndrome, chronic migraine, asthma , cardiac dysrhythmias and dysautonomia who presents with a migraine which initially started 1 month ago. Migraine, nausea, intractable admitted med/surg Received 1 dose DHE 1 mg IV in the ED, DHE 1 mg IM injections Q1H for next two doses. Pt notes her IV site currently burning, and was requesting placement of PICC line for possible Max daily dose of IV injections is 2 mg within 24 hours, and 3mg IM within 24 hours. Discussed with pharmacy urine b-Hcg neg, patient is on control pills received NSS 100 mL/hr continuous received IV zofran, phenergan, reglan prn Pt takes tramadol and oxycodone as outpatient Diarrhea Check stool cultures, c diff, O&P, especially since being admitted in [place] for 8 days recently Jerome-Danlos Syndrome, noted Cardiac dysrhythmias and dysautonomia nebivolol hcl 10 mg daily and clonidine 0.2 mg daily Depression/Anxiety effexor 150 mg daily patient left against medical advice, despite our recommendations, she understands risks including Total Time Spent: Greater than 30 minutes This includes examination of the patient, discharge planning, medication reconciliation, and communication with other providers. Discharge Instructions Please refer to the electronic Patient Visit Report (Discharge Instructions) for additional information.
== END 2016-06-23 23:07 | disposition left against medical advice (07) | DRG 103 ==
LOC: ENRESERVDT → ENRESERVTM → C.EDB 13:59 → C.MS4W 18:28
PROVIDERS: ADMIT Hospitalist; ATTEND Hospitalist
DX: G43.919 Migraine, unspecified, intractable, without status migrainosus (principal); Q79.6 Ehlers-Danlos syndromes; Z53.21 Procedure and treatment not carried out due to patient leaving prior to being seen by health care provider; R19.7 Diarrhea, unspecified; J45.909 Unspecified asthma, uncomplicated; G90.1 Familial dysautonomia [Riley-Day]; I49.9 Cardiac arrhythmia, unspecified; F32.9 Major depressive disorder, single episode, unspecified; F41.9 Anxiety disorder, unspecified; Z79.3 Long term (current) use of hormonal contraceptives; Z79.891 Long term (current) use of opiate analgesic; Z79.899 Other long term (current) drug therapy

== ENCOUNTER → 2016-07-18 | Outpatient (CLI) | payer OTHER ==
[~2016-07-18] MED LIST changes: +CALCTAB7 PO; +FLUD0.1T10 PO; +OXYC7.5T65 PO
[2016-07-18 17:03] LABS: ALT/SGPT 25 U/L (12-78); AST/SGOT 24 U/L (15-37); BLOOD UREA NITROGEN 8 mg/dl (7-18); BUN/CREATININE RATIO 13.8 (10-20); CALCIUM 8.5 mg/dl (8.5-10.1); CARBON DIOXIDE 27 mmol/L (21-32); CHLORIDE 106 mmol/L (98-107); CREATININE 0.58 mg/dl (0.60-1.20); GLUCOSE 80 mg/dl (70-99); POTASSIUM 4.2 mmol/L (3.5-5.1); SODIUM 142 mmol/L (136-145)
[2016-07-18 17:07] LABS: ALB/GLOB RATIO 0.9 (0.9-2); ALKALINE PHOSPHATASE 77 U/L (45-117)
[2016-07-18 17:12] LABS: BASO % 0.2 %; BASO ABS # 0.02 K/uL (0-0.2); COMPLETE YES; EOS % 1.7 %; HEMATOCRIT 39.5 % (37-47); IG% 0.3 %; LYMPH % 41.9 %; LYMPH ABS # 3.78 K/uL (1.2-3.4); MEAN CELL VOLUME 89.6 fL (80-100); MEAN CORPUSCULAR HEMOGLOBIN 29.3 pg (25-34); MEAN CORPUSCULAR HGB CONC 32.7 g/dl (32-36); MONO % 7.3 %; NEUT % 48.6 %; PLATELET COUNT 278 K/uL (130-400); RED BLOOD COUNT 4.41 M/uL (4.2-5.4); WHITE BLOOD COUNT 9.02 K/uL (4.8-10.8)
== END | disposition home or self-care (01) ==
LOC: C.LABBFT 14:38
PROVIDERS: ATTEND Psychiatry & Neurology Neurology
DX: G43.919 Migraine, unspecified, intractable, without status migrainosus (principal)

== ENCOUNTER → 2016-10-02 | Outpatient (CLI) | payer OTHER ==
[~2016-10-02] MED LIST changes: +GADAVIST IV PRN
--- NOTE | 2016-10-02 16:33 | DIAGNOSTIC IMAGING REPORT ---
MRI OF THE BRAIN WITHOUT AND WITH IV CONTRAST CLINICAL HISTORY: R51 Headache MRI COMPARISON STUDY: 08/16/2015 TECHNIQUE: Utilizing a 1.5 Perla magnet and dedicated coil, multiplanar, multiecho imaging of the brain was performed pre and postcontrast administration. IV administration of 8.5 mL of Gadavist contrast was uneventful. FINDINGS: Diffusion-weighted images are negative for an acute ischemic event. Postcontrast images are negative for an acute ischemic process. Small focus of increased signal posterior aspect left frontal lobe is unchanged. There are no additional findings. There are no new or interval changes. Sella and parasellar regions are unremarkable. Ventricular system is midline. IMPRESSION: 1. Small focus of increased signal posterior left frontal lobe unchanged from the prior examination. 2. No evidence for new interval or progressive process. 3. No abnormal postcontrast enhancement Electronically signed by: Gabriel Weinstein M.D. 10/02/2016 4:32 PM Dictated Date/Time: 10/02/2016 4:30 PM
== END | disposition home or self-care (01) ==
LOC: C.MRI 14:55
PROVIDERS: ATTEND Psychiatry & Neurology Neurology
DX: R51 Headache (principal); R90.89 Other abnormal findings on diagnostic imaging of central nervous system

== ENCOUNTER → 2016-10-22 | Outpatient (CLI) | payer OTHER ==
[~2016-10-22] VITALS: Ht 154.9 cm; Wt 88.9 kg
[~2016-10-22] MED LIST changes: -GADAVIST IV PRN
[2016-10-22 12:31] VITALS: BP 109/78; PULSE 106; Ht 154.9 cm; Wt 88.9 kg
== END ==
LOC: C.NEUR 11:15
PROVIDERS: ATTEND Internal Medicine Pulmonary Disease
DX: G47.33 Obstructive sleep apnea (adult) (pediatric) (principal); G25.81 Restless legs syndrome

== ENCOUNTER → 2016-12-05 | Outpatient (CLI) | payer OTHER ==
--- NOTE | 2016-12-06 05:52 | PAP/PSG TECHNICIAN REPORT ---
[facility] Airplane Dispatch Clerk Polysomnogram Report Study name: None Report date: 12/06/2016 Study date: 12/05/2016 Referring Physician: WILLI ORTEGA DO, DO Name: SHEA FLORES Interpreting Physician: Willi Ortega D.O. Date of : 1990 Airplane Dispatch Clerk: Shayna Foy [facility]. Sex: Female Age: 26 Study Type: PSG Weight: 209 lbs 14.5 in Height: 26 years, Height 5' 1" Neck Circum: BMI: 39.49 Medications: GABAPENTIN 800 MG, TOOGLPGVRA-CQRD-KMDBFIDE 50-325-40 MG, CYCLOBENZAPRINE 10 MG, TRAMADOL 50 MG, HALOPERIDOL 2 MG, MEMANTINE 5 MG, MEXILETINE 150 MG, NABUMETONE 500 MG, MICROGESTIN FE 1.5/30 MG-MCG, OXYCODONE-ACETAMINOPHEN 7.00598 MG, RIZATRIPTAN 10 MG, PROMETHAZINE 25 MG, CALCIUM 600 MG, BYSTOLIC, DESMOPRESSIN 0.1 MG, FLUDROCORTISONE ACETATE 0.1 MG, MULTI VIT, VIT D3 2000 UNIT Patient History 26 yr-old female here for a baseline study. She has a history of sleep onset and sleep maintenance insomnia, migraines, and frequent awakenings. Her [place] scale is 5. The test was started on room air. ETCO2 testing was not utilized during this study. Room 1 Parameters Monitored NPSG: E1-M2, E2-M1, Fp1-M2, Fp2-M1, F3-M2, F4-M2, F4-M1, C3-M2, C4-M2, C4-M1, O1-M2, O2-M2, O2-M1, T3-M2, T4-M1, P3-M2, P4-M1, CHIN1, CHIN2, HR, EKG, Legs, PFLOW, SNOR, FLOW, CFLOW, Tidal Volume, THOR, ABDO, SpO2, PLTH, CPRESS, ETCO2 Wave, ETCO2, pH Sleep Architecture Sleep Stages Time at Lights Off 9:20:31 PM STAGES Time (min.) TST (%) Time at Lights On 5:25:01 AM Wake 198.5 -- Total Recording Time (TRT) 484.50 min. N1 15.0 5 Total Sleep Period (TSP) 350.0 min. N2 171.5 60 Total Sleep Time (TST) 286.0min. N3 67.5 24 Awake Time 198.5 min. REM 32.0 11 Wake after Sleep Onset 75.5 min. Sleep Efficiency (SE) 59 % Sleep Onset Latency (TIMA) 123.0 min. Number of Stage 1 Shifts None Awakenings 12 Stage Changes 71 Number of REM periods 2 REM 32.0 11 REM Latency 177.0 min. NREM 254.0 89 Body Position Analysis Supine Right Left Side Prone Vertical Total Sleep Time (min.) 196.5 85.0 132.7 217.73 0.0 0.0 Total Sleep Time (%) 24% 30% 46% 76 0% N/A% Total Sleep Time REM (min.) 0.0 0.0 32.0 None 0.0 0.0 Total Sleep Time NREM (min.) 68.3 85.0 100.7 None 0.0 0.0 Intermittent Wake (min.) 128.2 53.2 17.1 None 0.0 0.0 Total Sleep Period (%) 20% None None None None None Arousals Myoclonus (PLM) * Events Count Index Events Count Index Spontaneous 21 4 Events Awake (PLMW) 59 17.8 Respiratory 1 0.4 Events Asleep w/ Arousal (PLMA) 7 1.5 PLM 7 1 Events Asleep w/o Arousal (PLMS) 26 5.5 Snoring 5 1 Total Asleep 33 6.9 Total 34 7 Total 92 11 Respiratory Analysis * CA OA MA CH H RERA Total Count 2 0 0 0 5 2 7 Index 0.4 0.0 0.0 0 1.0 0 1.9 Mean Duration 11.9 0.0 0.0 0.00 16.8 16.8 15.7 Longest Duration 13.2 0.0 0.0 0.00 0.0 16.8 19.2 Respiratory Event Summary Total Supine ~Supine Right Left Prone REM NREM Apneas Count 2 2 0 0 0 N/A 0 2 Index 0.4 2 0 0.0 0.0 N/A 0 0 Hypopneas (4% Desat) Count 5 0 5 0 5 N/A 5 0 Index 1.0 0.0 1 0.0 2.3 N/A 9.4 0.0 Apneas & All Hypopneas Count 7 2 5 0 5 N/A 5 2 Index 1.5 2 1 0 2 N/A 9.4 0.5 Respiratory Events (Sap Basis Architect+All Hyp+RERA) Count 7 2 7 2 5 N/A 5 2 Index 1.9 2 2 1.4 2.3 N/A 9.4 0.9 Respiratory Related Arousal Count 1 2 2 2 0 N/A 0 2 Index 0.4 0 1 1 0 N/A 0 0 Snoring Analysis Supine Right Left Prone REM NREM Total Snore duration 6.5 min Snores count 1 349 11 N/A 2 359 361 Snore mean duration 1.1 Sec Snores index 1 246 5 N/A 3.8 84.8 75.7 TST with snoring (%) 2.3% Desaturation Event Summary: Minimum %SpO2 Event Count Mean/Min/Max Duration(sec.) Desaturation Index % Time In Bed > 90 9 28.3 / 9.0 / 57.0 1.2 99.8 86 - 90 0 N/A 0.0 0.2 81 - 85 0 N/A 0.0 0.0 76 - 80 0 N/A 0.0 0.0 71 - 75 1 10.5 / 10.5 / 10.5 342.9 0.0 66 - 70 0 N/A 0.0 0.0 61 - 65 0 N/A 0.0 0.0 56 - 60 0 N/A 0.0 0.0 51 - 55 0 N/A 0.0 0.0 < 50 0 N/A 0.0 0.0 Total REM NREM Awake <50% 0.0 min. 0.0 min. 0.0 min. 0.0 min. 51 - 60% 0.0 min. 0.0 min. 0.0 min. 0.0 min. 61 - 70% 0.0 min. 0.0 min. 0.0 min. 0.0 min. 71 - 80% 0.2 min. 0.0 min. 0.0 min. 0.2 min. 81 - 90% 0.7 min. 0.7 min. 0.0 min. 0.0 min. 91 - 100% 464.3 min. 31.3 min. 254.0 min. 179.1 min. Average 95 95 94 95 Minimum SpO2 73 88 92 73 Desaturation Event Index 1.2 13.1 0.0 0.9 # Desat. Events below 89% 1 N/A N/A 1 Time(%) with Saturation below 89% 0.1 0.0 0.0 0.0 Time(min.) with Saturation below 89% 0.3 0.1 0.0 0.2 Time (mins) REM (mins) NREM (mins) % of TST SpO2 Below 90% 1 1 NN/A 0.2 SpO2 Below 88% 0 0 0 0 Heart Rate Analysis Min (bpm) Max (bpm) Average (bpm) Awake 67 127 84 NREM 59 104 74 REM 70 96 80 Overall 59 104 74 Supplemental O2 Values Minimum O2 level: None Value Start Time End Time Airplane Dispatch Clerk Comments Ms. Flores slept in the right, left, and supine positions. No cardiac arrhythmias or PLMs noted. No bruxism noted. Snoring was noted and scored as a 2 on a scale of 1 through 5. (0=no snoring, 5=snoring loud enough to be heard through a closed door or down the [address]) She awoke to use the restroom two times during the night. Ms. Flores stated that she slept about the same as usual. She woke up with a migraine and requested to end the test 10 minutes early. The final report will be interpreted and signed by a sleep physician. The completed physician report will then be placed in the patient medical record. Therapy (cm H2O) 0 TIB (min.) 484.5 TST (min.) 286.0 Sleep Onset (min.) 123.0 REM Onset From Sleep (min.) 177.0 Sleep Efficiency % 59 Wakefulness (%) 41 Wakefulness (min.) 198.5 NREM 1 (%) 5 NREM 1 (min.) 15.0 NREM 2 (%) 60 NREM 2 (min.) 171.5 NREM 3 (%) 24 NREM 3 (min.) 67.5 REM (%) 11 REM (min.) 32.0 # Arousals 34 Arousal Index 7 # Snore 361 Snore Index 75.7 AHI 1.5 AHI Supine 2 AHI Non-Supine 1 NREM AHI 0.5 REM AHI 9.4 RDI 1.9 # Obstructive Apnea 0 # Central Apnea 2 # Mixed Apnea 0 # Hypopneas 5 RERAs 2 Total Respiratory Events 9 Time Below SpO2 89% (min.) 0.1 Mean NREM SpO2 (%) 94 Mean REM SpO2 (%) 95 Mean Sleep SpO2 (%) 94 Min NREM SpO2 (%) 92 Min REM SpO2 (%) 88 Position Supine (min.) 196.5 Position Non-supine (min.) 217.7 LM Index Sleep 6.9 LM Index NREM 4.0 LM Index REM 30.0 Mean Heart Rate (bpm) 74 Min Heart Rate (bpm) 59
--- NOTE | 2016-12-08 18:01 | Sleep Study ---
Sleep Study Report Date of Service: 12/05/2016 Sleep Study Report Clinical data: The patient is a 26-year-old female with a history of insomnia, headaches, restless legs, and disturbed nocturnal sleep. Her Enochs score was 5 out of a possible 24. Her BMI is 39.49. This was an in-lab overnight sleep study. Sleep architecture: The total sleep. Was 350.0 minutes. The total sleep time was 286.0 minutes. Sleep efficiency was significantly reduced to 59 percent. Sleep onset latency was severely prolonged at 123 minutes. Wake after sleep onset was prolonged to 75.5 minutes. The REM latency was prolonged to 177 minutes. Sleep consisted of stage N1 5 percent, stage N2 60 percent, stage N3 24 percent, stage REM 11 percent. Arousal data: The patient had a total of 34 arousals including 21 spontaneous arousals, 1 respiratory arousal, 7 PLM arousals, and 5 snoring arousals. The arousal index was 7. PLM data: Patient had a total of 33 periodic limb movements for an index of 6.9. There was 7 arousals for a PLM arousal index of 1.5. EKG: The underlying cardiac rhythm was normal sinus. Cardiac rate ranged from 59 to 104 beats per minute. The average heart rate was 74 beats per minute. No arrhythmia was noted. Respiratory data: The patient had a total of 7 respiratory events including 2 central apneas and 5 hypopneas. Hypopneas were scored according to the 4 percent desaturation rule. The longest apnea was 13.2 seconds. The mean duration of hypopneas was 16.8 seconds. The apnea-hypopnea index was normal at 1.5 events per hour. This would suggest no significant sleep apnea. Oximetry data: Oxygen saturation average was 95 percent. The minimum saturation was 90 percent. Set Up Mold Technician comments: Patient slept on the right, left, and supine positions. No cardiac arrhythmias or significant PLMS noted. No bruxism noted. Snoring was noted and scored as a 2 on a scale of 1 through 5. She awoke to use the restroom 2 times during the night. The patient stated she slept about the same as usual. She awakened with migraine and requested to end the test to 10 minutes early. Impressions: 1. No evidence of obstructive sleep apnea 2. Restless legs by history 3. Insomnia Comments: Patient had a significant decrease in sleep efficiency mainly related to a markedly prolonged sleep onset latency. Sleep latency was 123 minutes. However reviewing the study patient was looking at her iPad from 09/20 p.m. until 11:13 p.m.. When she turned the iPad off she fell asleep in less than 10 minutes. It is unknown if this is her habits at home on a regular basis. She did not have any significant sleep apnea. Her oxygenation was normal. She had a mild number of limb movements that did not seem to disrupt her sleep. Her sleep was generally well consolidated from the time she ultimately did attain sleep until approximately 430. She then awakened with a headache and had no significant sleep after that. History obtained is that she has restless legs starting in the evening and that her significant other tells her legs are very restless during sleep. That did not occur during this study. Recommendations: 1. Patient has an elevated body mass index of 39.49. A weight reduction program is advised. This may result in improvement in both snoring and the mild degree of sleep disordered breathing that she has. 2. It is suggested that she avoid sleeping in the supine position. 3. Consideration may be given to a clinical trial of medications for restless legs. 4. The patient should be advised the appropriate principles of sleep hygiene including having a regular sleep-wake schedule and allowing sufficient sleep time. In addition she should avoid significant exposure to communicative technology such as eye pads or cell phones for a period of time before sleep as well as during the night. Copies To 1: Willi Escamilla DO; Joya Clemens
== END | disposition home or self-care (01) ==
LOC: C.NEUR 20:00
PROVIDERS: ATTEND Internal Medicine Pulmonary Disease
DX: G47.33 Obstructive sleep apnea (adult) (pediatric) (principal); G25.81 Restless legs syndrome

== ENCOUNTER 2016-12-06 05:56 | Emergency (ER) | payer OTHER ==
[~2016-12-06] VITALS: Ht 154.9 cm; Wt 89.0 kg
[~2016-12-06 05:56] MED LIST changes: -CALCTAB7 PO; -FLUD0.1T10 PO; -OXYC7.5T65 PO
[2016-12-06 05:59] VITALS: TEMP 36.8; Ht 154.9 cm; Wt 89.0 kg
[2016-12-06] MEDS ORDERED: PROCHLORPERAZINE 5 MG/ML 2 ML VIAL IM STA (06:40)
[2016-12-06] MEDS ORDERED: METHYLPREDNISOLONE 125 MG VIAL IM STA (06:40)
[2016-12-06] MEDS ORDERED: DiphenhydrAMINE HCL 50 MG/ML VIAL IM STA (06:40)
[2016-12-06] MEDS ORDERED: CALCTAB7 PO (06:44)
[2016-12-06] MEDS ORDERED: FLUD0.1T10 PO (06:46)
[2016-12-06] MEDS ORDERED: OXYC7.5T65 PO (06:49)
--- NOTE | 2016-12-06 07:22 | EMERGENCY ROOM VISIT NOTE ---
History Report prepared by Venu: Suzy Whyte Under the Supervision of: Dr. Bianca Isabel M.D. First contact with patient: 06:35 Chief Complaint: HEADACHE Stated Complaint: MIGRAINE History of Present Illness The patient is a 26 year old female who presents to the Emergency Room with complaints of a worsening headache that started 11 hours ago, around 1999. The patient states that the headache started out in her forehead then moved into the left side of her head. The patient took her medications last night and was able to fall asleep. However, when she woke up this morning the headache was worse. She took more of her medications this morning with minimal relief. She is also experiencing photophobia, nausea, and vomiting. She denies fevers. The patient has a history of migraines and states that this is consistent with her typical migraines. The patient states that she usually receives a cocktail of medications that resolves her headaches. The patient is not a smoker. She denies any chance of . The patient follows with Neurology for her migraines. Source of History: patient Onset: 11 hours ago, around 1999 Position: head Quality: other (headache) Timing: worsening Modifying Factors (Relieving): other (None) Associated Symptoms: + nausea, + vomiting, No fevers Note: photophobia Review of Systems See HPI for pertinent positives & negatives. A total of 10 systems reviewed and were otherwise negative. Past Medical & Surgical Medical Problems: (1) ASTHMA, UNSPECIFIED (2) CARDIAC DYSRHYTHMIAS NEC (3) Dysautonomia (4) Jerome-Danlos syndrome (5) HEADACHE (6) Migraine (7) MIGRAINE UNSPECIFIED W/O INTRACT MGRN W/O STATUS MIGRAINOSUS (8) POTS (postural orthostatic tachycardia syndrome) Surgical Problems: (1) H/O wisdom tooth extraction (2) History of orthopedic surgery (3) Hx of cholecystectomy Family History FH: HTN (hypertension) FH: diabetes mellitus FH: heart disease Social History Smoking Status: Never Smoker Alcohol Use: none Drug Use: none Marital Status: single Housing Status: lives with roommate Occupation Status: [employer] student Current/Historical Medications Scheduled Acetamin/Butalbital/Caffeine (Fioricet), 1 TAB PO Q4HR PRN Amantadine Hcl (Symmetrel), 200 MG PO DAILY Control Pills ( Control Pills), 1 TAB PO DAILY Calcium Carbonate-Vitamin D W/ (Caltrate 600 Plus), 1 TAB PO DAILY Cholecalciferol (Vitamin D), 2,000 INTER.UNIT PO DAILY Clonidine Hcl (Catapres), 0.2 MG PO QPM Desmopressin Acetate (Desmopressin Acetate), 0.1 MG PO DAILY Fludrocortisone Acetate (Florinef), 0.2 MG PO QAM Gabapentin (Neurontin), 800 MG PO TID Melatonin-Pyridoxine (Melatonin), 3 MG PO QPM Mexiletine Hcl (Mexiletine Hcl), 150 MG PO TID Multivitamin (Multivitamin), 1 TAB PO DAILY Nebivolol Hcl (Bystolic), 10 MG PO DAILY Riboflavin (Vitamin B-2), 200 MG PO BID Venlafaxine Hcl (Effexor Extended Rel), 150 MG PO DAILY Scheduled PRN Acetaminophen (Tylenol), 1,000 MG PO Q6 PRN for Pain or Fever Nfkhkjd-Pxbbsbyfxwwkl-Zxcvlmmf (Excedrin Migraine), 2 TABS PO Q8 PRN for Headache Metoclopramide Hcl (Reglan), 10 MG PO Q6H PRN for Nausea Oxycodone/Acetaminophen 7.5MG/325MG (Percocet 7.5MG/325MG), 1-2 TAB PO Q4H PRN for Pain Promethazine HCl (Promethazine HCl), 25 MG PO Q6H PRN for Nausea Tramadol Hcl (Ultram), 50 MG PO Q4H PRN for Pain Allergies Coded Allergies: Adhesives (Unverified Adverse Reaction, Intermediate, UNKNWN, 05/20/16) Physical Exam Vital Signs Date Time Temp Pulse Resp B/P (MAP) Pulse Ox O2 Delivery O2 Flow Rate FiO2 12/06/16 09:45 80 16 149/87 99 12/06/16 07:57 82 126/72 97 Room Air 12/06/16 05:59 36.8 108 16 135/87 98 Room Air Physical Exam Vital signs reviewed. General: Well-appearing female, in no significant distress. HEENT: No scleral icterus, PERRLA, neck supple, no meningeal signs. Atraumatic. Cardiovascular: Regular rate and rhythm, no extra sounds. Pulmonary: Clear to auscultation bilaterally, normal work of breathing. Abdomen: Soft, nontender, nondistended, positive bowel sounds. Musculoskeletal: Atraumatic, no peripheral edema. Neurologic: Patient awake alert and oriented x 3, full strength in all 4 extremities. Cranial nerves 2 through 12 grossly intact. No meningeal signs Skin: Warm, dry, no rash Medical Decision & Procedures Medications Administered Medications (Trade) Dose Ordered Sig/Param Route Start Time Stop Time Status Last Admin Dose Admin Methylprednisolone Sodium Succinate (Solu-Medrol IV) 125 mg NOW STAT IM 12/06/16 06:40 12/06/16 06:44 DC 12/06/16 07:04 125 MG Prochlorperazine Edisylate (Compazine Inj) 10 mg NOW STAT IM 12/06/16 06:40 12/06/16 06:44 DC 12/06/16 07:04 10 MG Diphenhydramine HCl (Benadryl Inj) 50 mg NOW STAT IM 12/06/16 06:40 12/06/16 06:44 DC 12/06/16 07:04 50 MG Hydromorphone HCl (Dilaudid Inj) 2 mg NOW STAT IM 12/06/16 08:27 12/06/16 08:29 DC 12/06/16 08:36 2 MG ED Course 0637: Past medical records reviewed. The patient was evaluated in room A11. A complete history and physical examination was performed. 0640: Ordered Benadryl Inj 50 mg IM, Compazine Inj 10 mg IM, Solu-Medrol 125 mg IM 0826: I reassessed the patient. She doesn't feel any better. 0827: Ordered Dilaudid Inj 2 mg IM 0916: Upon reevaluation, the patient appeared to have improvement of her symptoms. I discussed findings with her. She verbalized agreement of the treatment plan. She was discharged home. Medical Decision Differential diagnosis: Intracranial hemorrhage, intracranial mass, migraine headache, tension headache , sinusitis, meningitis. This patient was evaluated and appeared to be in no significant distress. Patient was given IM Compazine, and Benadryl and IM Solu-Medrol, she has declined an attempt at IV placement. She was not feeling much improved on my reevaluation was given 2 mg of IM Dilaudid. Patient had a significant turnaround, was ambulating in the room. She was discharged to a ride and will follow-up with her neurologist for further therapy. She will return to the ER for worsening of symptoms or any medical concerns. Medication Reconcilliation Current Medication List: was personally reviewed by me Blood Pressure Screening Patient's blood pressure: Normal blood pressure Impression Primary Impression: Migraine headache Scribe Attestation The scribe's documentation has been prepared under my direction and personally reviewed by me in its entirety. I confirm that the note above accurately reflects all work, treatment, procedures, and medical decision making performed by me. Departure Information Dispostion Home / Self-Care Referrals No Doctor, Assigned (PCP) Forms HOME CARE DOCUMENTATION FORM, IMPORTANT VISIT INFORMATION Patient Instructions My [facility] Additional Instructions Diagnosis: Migraine headache Drink plenty of clear fluids. Continue your medications as prescribed. Do not drive for at least 8 hours after receiving the medications today in the emergency department. Follow-up with your neurologist this week for reevaluation. Return to the ER for worsening of symptoms or any medical concerns. Problem Qualifiers Primary Impression: Migraine headache Migraine type: unspecified Status migrainosus presence: without status migrainosus Intractability: not intractable Qualified Codes: G43.909 - Migraine, unspecified, not intractable, without status migrainosus
[2016-12-06] MEDS ORDERED: HYDROmorphone INJ 2 MG/ML SYR/VIAL IM STA (08:27)
[2016-12-06 09:45] VITALS: BP 149/87; PULSE 80; O2SAT 99
== END 2016-12-06 09:46 | disposition home or self-care (01) ==
LOC: C.EDB 05:56 → C.EDA 09:46
DX: G43.909 Migraine, unspecified, not intractable, without status migrainosus (principal); J45.909 Unspecified asthma, uncomplicated; Q79.6 Ehlers-Danlos syndromes; Z90.49 Acquired absence of other specified parts of digestive tract; Z98.818 Other dental procedure status; Z98.890 Other specified postprocedural states; Z82.49 Family history of ischemic heart disease and other diseases of the circulatory system; Z83.3 Family history of diabetes mellitus

== ENCOUNTER → 2016-12-11 | Outpatient (CLI) | payer OTHER ==
[~2016-12-11] VITALS: Ht 154.9 cm; Wt 87.6 kg
[~2016-12-11] MED LIST changes: +CALCTAB7 PO; -CLTP PO; -FLR1 PO; +FLUD0.1T10 PO; -OXYC-643 PO; +OXYC7.5T65 PO
[2016-12-11 15:27] VITALS: BP 131/84; PULSE 142; Ht 154.9 cm; Wt 87.6 kg
== END | disposition home or self-care (01) ==
LOC: C.NEUR 14:38
PROVIDERS: ATTEND Internal Medicine Pulmonary Disease
DX: G47.00 Insomnia, unspecified (principal); G25.81 Restless legs syndrome

== ENCOUNTER → 2017-02-25 | Outpatient (CLI) | payer OTHER ==
--- NOTE | 2017-02-25 15:13 | DIAGNOSTIC IMAGING REPORT ---
(CHEST) THORAX WITHOUT CLINICAL HISTORY: MULTIPLE LUNG NODULES COMPARISON STUDY: CT scan dated 05/20/2016 CT DOSE: 373.02 mGy.cm TECHNIQUE: CT of the thorax was performed from the thoracic inlet to the lung bases. Images are reviewed in the axial, sagittal, and coronal planes. IV contrast was not administered for this examination. A dose lowering technique was utilized adhering to the principles of ALARA. FINDINGS: Thyroid: Imaged portions of the thyroid gland are normal in appearance. Thoracic aorta: The thoracic aorta is normal in course and caliber, noting standard 3 vessel arch anatomy. Heart: The heart is normal in size and configuration, without pericardial effusion. Lungs and pleural spaces: There are trace bilateral pleural effusions. There is no focal pulmonary consolidation. There is a stable 7 mm flat right middle lobe perifissural nodule. A few additional tiny subpleural nodules remain stable. There are no new or enlarging pulmonary lesions. Given the age of the patient, and low suspicion appearance of the nodules, further follow-up is probably not indicated. Mediastinum: There is no mediastinal lymphadenopathy. Felecia: Clear. Axilla: There is no evidence of pathologic adenopathy Upper abdomen: Partially visualized upper abdominal viscera is within normal limits. Skeletal structures: There are no lytic or blastic osseous lesions. IMPRESSION: 1. No acute intrathoracic findings 2. No evidence of focal pulmonary consolidation 3. Trace bilateral pleural effusions. 4. Stable very low suspicion subcentimeter pulmonary nodules Electronically signed by: Venkatesh Godwin M.D. 02/25/2017 3:11 PM Dictated Date/Time: 02/25/2017 3:02 PM
== END | disposition home or self-care (01) ==
LOC: C.CTS 14:47
PROVIDERS: ATTEND Physician Assistant
DX: R91.8 Other nonspecific abnormal finding of lung field (principal)

== ENCOUNTER 2017-07-22 02:06 | Emergency (ER) | payer OTHER ==
[~2017-07-22] VITALS: Ht 154.9 cm; Wt 85.5 kg
[~2017-07-22 02:06] MED LIST changes: +DESM0.1T12 PO; -DESM0.1T8 PO
[2017-07-22 02:10] VITALS: TEMP 36.7; Ht 154.9 cm; Wt 85.5 kg
[2017-07-22] MEDS ORDERED: SODIUM CHLORIDE 0.9% 1000ML 1,000 ML IV STA (02:21)
[2017-07-22] MEDS ORDERED: DiphenhydrAMINE HCL 50 MG/ML VIAL IV STA ×2 (02:21→03:41)
[2017-07-22] MEDS ORDERED: METOCLOPRAMIDE HCL INJ 5 MG/ML 2 ML VIAL IV STA (02:21)
[2017-07-22] MEDS ORDERED: KETOROLAC TROMETHAMINE 30 MG/ML VIAL IV STA (02:21)
[2017-07-22] MEDS ORDERED: NORE1TAB99 PO (02:46)
[2017-07-22] MEDS ORDERED: BUPR10DI TOP (02:47)
[2017-07-22] MEDS ORDERED: TRAZ50TA35 PO (02:47)
[2017-07-22] MEDS ORDERED: NABU500T3 PO (02:49)
[2017-07-22] MEDS ORDERED: CYCL10TA6 PO (02:50)
[2017-07-22] MEDS ORDERED: HALO2TAB PO (02:50)
[2017-07-22] MEDS ORDERED: RIZA10TA18 PO (02:51)
[2017-07-22] MEDS ORDERED: PRC4 PO (02:51)
[2017-07-22] MEDS ORDERED: ATEN50TA8 PO (02:51)
[2017-07-22] MEDS ORDERED: PROCHLORPERAZINE 5 MG/ML 2 ML VIAL IV STA (03:41)
[2017-07-22] MEDS ORDERED: DIHYDROERGOTAMINE MESYLATE 1 MG/ML VIAL IV ONE (03:45)
--- NOTE | 2017-07-22 04:58 | EMERGENCY ROOM VISIT NOTE ---
History First contact with patient: 02:09 Chief Complaint: HEADACHE Stated Complaint: MIGRAINE History of Present Illness The patient is a 26 year old female who presents to the Emergency Room with complaints of migraine for the past 4 days who has been receiving Botox therapy for the first time last week. She follows with Dr. Ricardo. Patient's tried multiple meds at home with no relief of symptoms. Normal imaging in the past. Headache is similar to prior. She describes the headache as throbbing, ranging in severity currently 8 out of 10 throughout the frontal region similar to prior. It was not sudden in onset. Patient with some nausea and photophobia. Patient denies fevers, neck stiffness, cough, congestion, sore throat, flulike illness, abdominal pain, chest pain, localized weakness. Review of Systems An 10 system review of systems was completed with positives and pertinent negatives listed in the HPI. Past Medical/Surgical History Medical Problems: (1) ASTHMA, UNSPECIFIED (2) CARDIAC DYSRHYTHMIAS NEC (3) Dysautonomia (4) Jerome-Danlos syndrome (5) HEADACHE (6) Migraine (7) MIGRAINE UNSPECIFIED W/O INTRACT MGRN W/O STATUS MIGRAINOSUS (8) POTS (postural orthostatic tachycardia syndrome) Surgical Problems: (1) H/O wisdom tooth extraction (2) History of orthopedic surgery (3) Hx of cholecystectomy Family History FH: HTN (hypertension) FH: diabetes mellitus FH: heart disease Social History Smoking Status: Never Smoker Alcohol Use: none Drug Use: none Housing Status: lives with roommate Current/Historical Medications Scheduled Buprenorphine (Butrans), 1 PATCH TOP WK Clonidine Hcl (Catapres), 0.2 MG PO QPM Desmopressin Acetate (Desmopressin Acetate), 0.2 MG PO QPM Fludrocortisone Acetate (Florinef), 0.2 MG PO QAM Gabapentin (Neurontin), 800 MG PO TID Mexiletine Hcl (Mexiletine Hcl), 300 MG PO BID Nebivolol Hcl (Bystolic), 10 MG PO DAILY Norethin Acet & Estrad-Fe (Gildess Fe 06/06), 1 TAB PO DAILY Trazodone Hcl (Trazodone), 50 MG PO QPM Scheduled PRN Acetamin/Butalbital/Caffeine (Fioricet), 1-2 TAB PO BID PRN for Migraine Atenolol (Tenormin), 50 MG PO DAILY PRN for Hypertension Cyclobenzaprine Hcl (Flexeril), 10 MG PO TID PRN for Muscle Spasms Cyproheptadine HCl (Cyproheptadine HCl), 4 MG PO BID PRN for as needed Haloperidol (Haloperidol), 1-2 TAB PO BID PRN for Anxiety Nabumetone (Relafen), 500 MG PO BID PRN for Headache Oxycodone/Acetaminophen 7.5MG/325MG (Percocet 7.5MG/325MG), 1 TAB PO TID PRN for Pain Promethazine HCl (Promethazine HCl), 25 MG PO BID PRN for Nausea Rizatriptan Benzoate (Maxalt), 10 MG PO UD PRN for Migraine Physical Exam Vital Signs Date Time Temp Pulse Resp B/P (MAP) Pulse Ox O2 Delivery O2 Flow Rate FiO2 07/22/17 03:33 99 16 153/102 98 Room Air 07/22/17 02:10 36.7 114 18 143/91 97 Room Air Physical Exam VITALS: Vitals are noted on the nurse's note and reviewed by myself. Vital signs hypertensive GENERAL: Pleasant female who appears in pain, in no acute distress, nondiaphoretic, well-developed well-nourished. SKIN: The skin was without rashes, erythema, edema, or bruising. There is no tenting of the skin. Capillary reflex less than 2 seconds. HEAD: Normocephalic atraumatic. EARS: External auditory canals clear, tympanic membranes pearly calix without erythema or effusion bilaterally. EYES: Pupils equal round and reactive to light and accommodation. Conjunctivae without injection, sclerae without icterus. Extraocular movements intact. NOSE: Patent, turbinates without inflammation or discharge. No sinus tenderness. MOUTH: Mucous membranes moist. Pharynx without erythema or exudate. Uvula midline. Airway patent. Tongue does not deviate. NECK: Supple without nuchal rigidity. No lymphadenopathy. No thyromegaly. Cervical spine is nontender. No JVD. HEART: Regular rate and rhythm without murmurs gallops or rubs. LUNGS: Clear to auscultation bilaterally without wheezes, rales or rhonchi. No retractions or accessory muscle use. ABDOMEN: Positive bowel sounds x 4. Normal tympanic percussion. Soft, nontender, without masses or organomegaly. Gonzalez sign negative. No guarding or rebound tenderness. No CVA tenderness MUSCULOSKELETAL: No muscle atrophy, erythema, or edema noted. NEURO: Patient was alert and oriented to person place and time. Normal sensation to light and sharp touch. No focal neurological deficits. Cranial nerves II through XII grossly intact. No prior drift. Cerebellar exam intact. Medical Decision & Procedures Medications Administered Medications (Trade) Dose Ordered Sig/Param Route Start Time Stop Time Status Last Admin Dose Admin Ketorolac Tromethamine (Toradol Inj) 30 mg NOW STAT IV 07/22/17 02:21 07/22/17 02:22 DC 07/22/17 02:32 30 MG Diphenhydramine HCl (Benadryl Inj) 25 mg NOW STAT IV 07/22/17 02:21 07/22/17 02:22 DC 07/22/17 02:31 25 MG Metoclopramide HCl (Reglan Inj) 10 mg NOW STAT IV 07/22/17 02:21 07/22/17 02:22 DC 07/22/17 02:32 10 MG Sodium Chloride 1,000 ml @ 999 mls/hr Q1H1M STAT IV 07/22/17 02:21 07/22/17 03:21 DC 07/22/17 02:32 999 MLS/HR Dihydroergotamine Mesylate (D.H.E. 45 Inj) 0.5 mg NOW ONCE IV 07/22/17 03:45 07/22/17 03:46 DC 07/22/17 04:02 0.5 MG Prochlorperazine Edisylate (Compazine Inj) 10 mg NOW STAT IV 07/22/17 03:41 07/22/17 03:45 DC 07/22/17 04:02 10 MG Diphenhydramine HCl (Benadryl Inj) 12.5 mg NOW STAT IV 07/22/17 03:41 07/22/17 03:45 DC 07/22/17 04:02 12.5 MG ED Course Prior records/ancillary studies reviewed. Additional history obtained from family. Triage Nursing notes reviewed. The patient's history was concerning for headache. Differential diagnosis: Etiologies such as migraine headache, meningitis, sinusitis, CO exposure, ICH, SAH, infection, tumor, headache, sinus thrombosis, arterial dissection, as well as others were entertained. Physical examination findings: As above. Non-focal. ER treatment provided: Toradol, Benadryl, Reglan, IV fluids, DHE, Compazine, Benadryl On reassessment the patient felt better. Diagnostics interpreted by me: Imaging studies: MRI OF THE BRAIN WITHOUT AND WITH IV CONTRAST CLINICAL HISTORY: R51 Headache MRI COMPARISON STUDY: 08/16/2015 TECHNIQUE: Utilizing a 1.5 Perla magnet and dedicated coil, multiplanar, multiecho imaging of the brain was performed pre and postcontrast administration. IV administration of 8.5 mL of Gadavist contrast was uneventful. FINDINGS: Diffusion-weighted images are negative for an acute ischemic event. Postcontrast images are negative for an acute ischemic process. Small focus of increased signal posterior aspect left frontal lobe is unchanged. There are no additional findings. There are no new or interval changes. Sella and parasellar regions are unremarkable. Ventricular system is midline. IMPRESSION: 1. Small focus of increased signal posterior left frontal lobe unchanged from the prior examination. 2. No evidence for new interval or progressive process. 3. No abnormal postcontrast enhancement Electronically signed by: Gabriel Weinstein M.D. Patient for me after the first round of migraine medications that only narcotics worked for her. I informed her that I will not be giving her narcotics for her migraine is been ongoing for 3 days. She states that DHE has occasionally worked in the past. I informed her that I can give her this next with antinausea medicine. Patient then was adamant that narcotics only work for her pain. I told her this is contraindicated and patient seemed extremely upset with this. Patient has had multiple narcotic prescriptions in the past. This appears to be consistent with migraine. Patient has a long-standing history of this. Symptoms are similar. Patient was neurovascularly and neurologically intact. She is well-appearing. She is advised to follow-up with her neurologist in a few days or here in the ER sooner for headache, fevers , neck stiffness, worsening signs or symptoms or as needed. By the evaluation outlined above emergent etiologies such as meningitis, sinusitis, CO exposure, ICH, SAH, infection, temporal arteritis, tumor, sinus thrombosis, arterial dissection, as well as others were deemed relatively unlikely. The pt informed about the findings as listed above. All questions were answered. Return instructions were outlined and the patient was discharged in stable condition. Patient was informed that all narcotics must be prescribed and obtain by the family care doctor pain management. Patient was informed that narcotics are contraindicated with migraines. Referral: The patient was referred back to their primary care physician or neurology for follow-up in 2 to 3 days for a recheck of the current condition. The chart was completed utilizing [employer] Speech voice recognition software. Grammatical errors, random word insertions, pronoun errors, and incomplete sentences are an occassional consequence of this system due to software limitations, ambient noise, and hardware issues. Any formal questions or concerns about the content, text, or information contained within the body of this dictation should be directly addressed to the physician electrician's assistant for clarification. Medical Decision As above [place] Drug Monitoring Program Search Results: patient reviewed within database, see additional documentation (Multiple narcotic prescriptions) Medication Reconcilliation Current Medication List: was personally reviewed by me Blood Pressure Screening Patient's blood pressure: Elevated blood pressure Blood pressure disposition: Elevated BP felt to be situational Impression Primary Impression: Migraine Departure Information Dispostion Home / Self-Care Condition GOOD Referrals No Doctor, Assigned (PCP) Patient Instructions [facility] Additional Instructions DO NOT drive, drink alcohol, operate machinery, or perform dangerous activities today. You were given medications in the ER that can affect your ability to safely function or operate a vehicle. Rest today in a quiet, peaceful, dark environment and get a full 8-10 hrs of sleep tonight. Avoid loud noises, smoke/smoking, alcohol, bright lights, stress, or physical exertion today to minimize the chance the headache may return. Continue current medications. Ibuprofen(Motrin, Advil) may be used for fever or pain. Use 600mg every six hours as needed. Take with food. Avoid using more than 2400mg in a 24 hour period. Do not use 2400mg per day for more than three consecutive days without physician direction. Prolonged inappropriate use can lead to stomach upset or ulcers. (AND/OR) Acetaminophen(Tylenol) may be used for fever or pain. Use 1000mg every six hours as needed. Avoid using more than 3000mg in a 24 hour period. Return to the ER for passing out, worsening headache, vision problems, neck stiffness/pain, fevers, vomiting, worsening of your condition, or as needed. Follow up with your primary physician and/or a neurologist in 2-3 days for a recheck of your current condition. Problem Qualifiers Primary Impression: Migraine Migraine type: without aura Status migrainosus presence: without status migrainosus Intractability: not intractable Qualified Codes: G43.009 - Migraine without aura, not intractable, without status migrainosus
[2017-07-22 05:04] VITALS: BP 154/101; PULSE 108; O2SAT 98
== END 2017-07-22 05:07 | disposition home or self-care (01) ==
LOC: C.EDB 02:07 → C.EDA 05:07
DX: G43.009 Migraine without aura, not intractable, without status migrainosus (principal); Q79.6 Ehlers-Danlos syndromes; I49.8 Other specified cardiac arrhythmias; J45.909 Unspecified asthma, uncomplicated; Z79.3 Long term (current) use of hormonal contraceptives; Z90.49 Acquired absence of other specified parts of digestive tract; Z98.890 Other specified postprocedural states; Z83.3 Family history of diabetes mellitus; Z82.49 Family history of ischemic heart disease and other diseases of the circulatory system